=== PATIENT | male | born 1985 | race Caucasian/White ===

== ENCOUNTER → 2022-01-10 10:33 | Outpatient (CLI) | payer OTHER, SELFPAY ==
--- NOTE | 2022-01-10 10:38 | CT_ITS ---
FINAL REPORT CLINICAL HISTORY: CERVICAL SPRAIN W L RADICULOPATHY FINDINGS: Axial CT images of the cervical spine were obtained without contrast. Sagittal and coronal reformatted images were also obtained. This study was performed with techniques to keep radiation doses as low as reasonably achievable (ALARA). Individualized dose reduction techniques using automated exposure control or adjustment of mA and/or kV according to the patient''s size were employed. There is no evidence of fracture or dislocation. The bony alignment is normal. There are moderate and severe degenerative changes. There are multilevel disc osteophyte complexes. There is kyphosis centered at C5. There is multilevel neural foraminal narrowing. There is mild central canal stenosis at C4-5 with an AP diameter of the thecal sac of 8 mm. There is mild central canal stenosis at C5-6 with an AP diameter of the thecal sac of 9 mm. There is mild central canal stenosis at C6-7 with an AP diameter of the thecal sac of 8 mm. No paraspinous soft tissue abnormality is seen. Limited images of the upper thorax are unremarkable. Note is made of numerous borderline sized bilateral neck lymph nodes as a nonspecific finding but may be reactive. IMPRESSION: Moderate and severe degenerative changes as above. Central canal stenosis at C4-5, C5-6 and C6-7. Reviewed, Interpreted and Dictated by Robbie Levine III, MD Transcribed by Francesca Jiang Authenticated and [facility]
== END ==
PROVIDERS: PCP Physical Medicine & Rehabilitation; Visit Provider Physical Medicine & Rehabilitation
DX: S16.1XXA Strain of muscle, fascia and tendon at neck level, initial encounter (principal); M54.12 Radiculopathy, cervical region
CPT/HCPCS: 72125

== ENCOUNTER → 2022-02-08 12:39 | Outpatient (CLI) | payer OTHER, SELFPAY ==
--- NOTE | 2022-02-08 12:47 | XR_ITS ---
FINAL REPORT CLINICAL HISTORY: CERVICALGIA, Hx of work injury in September 2021 FINDINGS: SPINE CERVICAL COMPLETE/FLEXION & EXT Seven views were obtained. There is no acute fracture. Alignment is normal. There are moderate degenerative changes. There are multiple disc osteophyte complexes in the mid and lower cervical spine. There is bilateral neural foraminal narrowing at C5-C6 and C6-C7. There is no abnormal movement with flexion or extension. IMPRESSION: Moderate degenerative changes with bilateral neural foraminal narrowing at C5-C6 and C6-C7. Reviewed, Interpreted and Dictated by Robbie Levine III, MD Transcribed by Onofre Winters Authenticated and [facility]
== END ==
PROVIDERS: PCP Pediatrics; Visit Provider Physician Assistant
DX: M54.2 Cervicalgia (principal)
CPT/HCPCS: 72052

== ENCOUNTER → 2022-02-20 09:01 | Outpatient (CLI) | payer OTHER, SELFPAY ==
--- NOTE | 2022-02-20 09:09 | MR_ITS ---
FINAL REPORT TECHNIQUE: Multiplanar MR without contrast CLINICAL HISTORY: CERVICALGIA, left sided neck pain into left arm. FINDINGS: Limited images of the posterior fossa are unremarkable. Alignment is normal. Cervical spinal cord shows normal signal and contour. Advanced spondylosis in the mid and lower cervical spine. C2-3: Moderate facet arthropathy. Mild annular disc bulge. Severe left and moderate right neural foraminal narrowing. C3-4: Moderate left facet arthropathy. Tiny central disc protrusion. C4-5: Broad-based moderate central disc protrusion slightly eccentric to the left. Moderate central canal stenosis with cord contact. Mild neural foraminal narrowing. C5-6: Broad-based right paracentral disc osteophyte complex with right canal stenosis, severe right lateral recess stenosis, and severe right neural foraminal narrowing. C6-7: Mild diffuse spondylosis with mild canal stenosis. Severe left and mild right neural foraminal narrowing. C7-T1: Minimal annular disc bulge. IMPRESSION: Advanced degenerative changes. Reviewed, Interpreted and Dictated by Lizbeth Mills MD Transcribed by Onofre Winters Authenticated and [facility]
== END ==
PROVIDERS: PCP Physician Assistant; Visit Provider Physician Assistant
DX: M54.2 Cervicalgia (principal)
CPT/HCPCS: 72141; 76376